=== PATIENT | male | born 1955 | race Caucasian/White ===

== ENCOUNTER 2016-12-23 18:26 | Emergency (ER) | payer BC ==
[2016-12-23 18:49] VITALS: BP 183/96
[2016-12-23] MEDS ORDERED: Ondansetron 4 MG Tab.DIS PO ONE (19:10)
[2016-12-23] MEDS ORDERED: Ketorolac 60 MG/2 ML SDV IM ONE (19:10)
--- NOTE | 2016-12-23 19:13 | EDM.PDOC ---
ED HPI GENERAL MEDICAL PROBLEM - General Chief Complaint: Flank Pain Stated Complaint: STONES Time Seen by Provider: 12/23/16 18:50 Source of Information: Reports: Patient, Family, RN Notes Reviewed History Limitations: Reports: No Limitations - History of Present Illness INITIAL COMMENTS - FREE TEXT/NARRATIVE: 61-year-old female presents emergency department day complaint of right flank pain she has no history of kidney stones however today she has sharp stabbing pain low back and she's developed brown colored urine denies any fever is complaining of nausea no vomiting no shortness of breath or chest pain - Related Data Allergies Allergy/AdvReac Type Severity Reaction Status Date / Time No Known Allergies Allergy Verified 12/23/16 18:54 Home Meds: Home Meds Insulin Aspart [NovoLOG] 12/23/16 [History] Insulin Degludec [Tresiba Flextouch U-100] 12/23/16 [History] metFORMIN [Glucophage] 12/23/16 [History] Past Medical History Endocrine/Metabolic History: Reports: Diabetes, Type II Social & Family History - Tobacco Use Smoking Status *Q: Never Smoker ED ROS GENERAL - Review of Systems Review Of Systems: See Below Constitutional: Reports: No Symptoms HEENT: Reports: No Symptoms Respiratory: Reports: No Symptoms Cardiovascular: Reports: No Symptoms GI/Abdominal: Reports: Nausea. Denies: Vomiting : Reports: Flank Pain, Hematuria Musculoskeletal: Reports: No Symptoms Skin: Reports: No Symptoms ED EXAM, GI/ABD - Physical Exam Exam: See Below Exam Limited By: No Limitations General Appearance: Alert, WD/WN, Mild Distress Neck: Normal Inspection, Supple, Non-Tender, Full Range of Motion Respiratory/Chest: No Respiratory Distress, Lungs Clear, Normal Breath Sounds, No Accessory Muscle Use Cardiovascular: Regular Rate, Rhythm, No Murmur GI/Abdominal Exam: Soft, Tender (Tender along right flank right CVA tenderness) Back Exam: Normal Inspection, Full Range of Motion, CVA Tenderness (R). No: CVA Tenderness (L) Course - Vital Signs Last Recorded V/S: Last Vital Signs Temp 99.4 F 12/23/16 19:01 Pulse 97 12/23/16 19:01 Resp 20 12/23/16 19:01 BP 183/96 H 12/23/16 19:01 Pulse Ox 95 12/23/16 19:01 - Orders/Labs/Meds Orders: Active Orders 24 hr Category Date Time Status Abdomen Pelvis wo Cont [CT] Stat Exams 12/23/16 19:10 Taken Labs: Laboratory Tests 12/23/16 12/23/16 12/23/16 Range/Units 19:07 19:19 19:19 WBC 7.2 (4.5-11.0) K/uL RBC 5.00 (4.30-5.90) M/uL Hgb 14.2 (12.0-15.0) g/dL Hct 41.7 (40.0-54.0) % MCV 83 (80-98) fL MCH 28 (27-31) pg MCHC 34 (32-36) % Plt Count 165 (150-400) K/uL Neut % (Auto) 75 H (36-66) % Lymph % (Auto) 14 L (24-44) % [place] % (Auto) 9 H (2-6) % Eos % (Auto) 2 (2-4) % Baso % (Auto) 0 (0-1) % Sodium 140 (140-148) mmol/L Potassium 4.0 (3.6-5.2) mmol/L Chloride 105 (100-108) mmol/L Carbon Dioxide 27 (21-32) mmol/L Anion Gap 7.7 (5.0-14.0) mmol/L BUN 22 H (7-18) mg/dL Creatinine 0.8 (0.8-1.3) mg/dL Est Cr Clr Drug Dosing 88.61 mL/min Estimated GFR (MDRD) > 60 (>60) Glucose 213 H (74-106) mg/dL Calcium 8.7 (8.5-10.1) mg/dL Total Bilirubin 0.5 (0.2-1.0) mg/dL AST 34 (15-37) U/L ALT 31 (12-78) U/L Alkaline Phosphatase 137 H (46-116) U/L Total Protein 6.8 (6.4-8.2) g/dL Albumin 3.6 (3.4-5.0) g/dL Globulin 3.2 (2.3-3.5) g/dL Albumin/Globulin Ratio 1.1 L (1.2-2.2) Urine Color Yellow Urine Appearance Slightly cloudy Urine pH 5.0 (4.5-8.0) Ur Specific [place] 1.025 (1.008-1.030) Urine Protein Negative (NEGATIVE) mg/dL Urine Glucose (UA) 250 H (NEGATIVE) mg/dL Urine Ketones Negative (NEGATIVE) mg/dL Urine Occult Blood Large (NEGATIVE) Urine Nitrite Negative (NEGAITVE) Urine Bilirubin Negative (NEGATIVE) Urine Urobilinogen 1 (NORMAL) mg/dL Ur Leukocyte Esterase Small (NEGATIVE) Urine RBC >100 H (0-5) Urine WBC 5-10 H (0-5) Ur Epithelial Cells Moderate Amorphous Sediment Not seen Urine Bacteria Many Urine Mucus Moderate Meds: Medications Discontinued Medications Generic Name Dose Route Start Last Admin Trade Name Freq PRN Reason Stop Dose Admin Ketorolac Tromethamine 60 mg 12/23/16 19:10 12/23/16 19:19 Toradol IM 12/23/16 19:11 60 mg ONETIME ONE Administration Ondansetron HCl 4 mg 12/23/16 19:10 12/23/16 19:19 Zofran Odt PO 12/23/16 19:11 4 mg ONETIME ONE Administration Departure - Departure Time of Disposition: 20:12 Disposition: Home, Self-Care 01 Condition: Good Clinical Impression: Nephrolithiasis - Discharge Information Referrals: Yennifer Prakash MD [Primary Care Provider] - Forms: ED Department Discharge Additional Instructions: Use ibuprofen for baseline pain control, use hydrocodone for breakthrough pain, these follow-up with your primary care provider upon return home for review CT scan results - My Orders Last 24 Hours: My Active Orders 12/23/16 19:10 Abdomen Pelvis wo Cont [CT] Stat - Assessment/Plan Last 24 Hours: My Active Orders 12/23/16 19:10 Abdomen Pelvis wo Cont [CT] Stat Plan: Assessment Acuity = acute Site and laterality = 1 mm right sided nephrolithiasis distal ureter Etiology = unclear etiology Manifestations = pain, nausea Location of injury = Home Lab values = CBC unremarkable glucose elevated at 213 consistent hyperglycemia urine glucose 250 consistent glucose urea rbc's greater than 100 consistent hematuria and 5-10 wbc's the urine consistent with pyuria, CT scan described stone above in addition to an 8 mm nodule in the right lower lobe on clear etiology Plan I did review lab work and CT scan results with her she is to follow-up with her primary care provider upon return home with review of the CT scan results, prescription written for 10 hydrocodone 5/325 for pain control every 6 hours as needed Patient was in agreement with the plan all questions were answered, they were instructed to return to the emergency department or call for worsening symptoms. This note was dictated using [employer] voice recognition software please call with any questions.
== END 2016-12-23 20:42 | disposition home or self-care (01) ==
LOC: JP.ED 18:26
DX: N20.0 Calculus of kidney (principal); E11.9 Type 2 diabetes mellitus without complications; Z79.4 Long term (current) use of insulin; Z79.84 Long term (current) use of oral hypoglycemic drugs
CPT/HCPCS: 36415; 74176; 80053; 81001; 85025; 96372; 99284; A9270; J1885